=== PATIENT | male | born 2000 | race Caucasian/White ===

== ENCOUNTER 2023-09-29 13:10 | Inpatient (IN) | payer OTHER ==
[~2023-09-29 13:10] MED LIST: Dexamethasone 20 MG/5 ML VIAL ONE; Iopamidol-370 76% 500 ML MDV (1 ML CHARGE) ONE; Lidocaine 1% PF 5 ML VIAL ONE; Ondansetron PF 4 MG/2 ML Vial ONE; PROPOFOL 200 MG/20 ML VIAL ONE; Rocuronium Bromide 10 MG/ML (10ML VIAL) ONE; Succinylcholine 200 MG/10 ml SYRINGE FS ONE
[2023-09-29] MEDS ORDERED: CEFAZOLIN 2 GM VIAL ONE (13:15)
[2023-09-29] MEDS ORDERED: Boostrix 0.5 ML (Tdap) VIAL (>/=7 yrs of age) ONE (13:15)
[2023-09-29] MEDS ORDERED: Sodium Chloride 0.9% 100 ML ONE (13:15)
[2023-09-29] MEDS ORDERED: fentaNYL 50 mcg/mL 1 mL Vial ONE ×4 (13:21→17:50)
[2023-09-29 13:31] LABS: #Basophils 0.1 thou/uL (0.0-0.2); #Eosinphils 0.2 thou/uL (0.0-0.7); #Monocytes 0.6 thou/uL (0.11-0.59); %Basophils 0.6 % (0.0-1.0); %Eosinophils 1.9 % (0.0-10.0); %Lymphocytes 42.5 % (21.0-51.0); %Monocytes 6.7 % (0.0-10.0); %Neutrophils 47.9 % (42.0-75.0); Hematocrit 43.8 % (42.0-52.0); Hemoglobin 15.2 g/dL (14.0-18.0); Mean Corpuscular HGB CONC 34.7 g/dL (32.0-36.0); Mean Corpuscular Hemoglobin 29.4 pg (27.0-31.0); Mean Corpuscular Volume 84.7 fl (78.0-98.0); Mean Platelet Volume 9.7 fL (7.4-10.4); Platelet Count 285 10x3/uL (130-400); RBC Distribution Width 12.9 % (11.5-14.5); Red Blood Cell (RBC) Count 5.17 mill/uL (4.70-6.10); White Blood Cell (WBC) Count 8.4 10x3/uL (4.8-10.8)
[2023-09-29] MEDS ORDERED: Ondansetron PF 4 MG/2 ML Vial ONE ×2 (13:43→16:22)
[2023-09-29] MEDS ORDERED: Morphine 10 MG/ML VIAL ONE (13:43)
[2023-09-29 13:49] LABS: ALT (SGPT) 28 U/L (8-55); AST (SGOT) 22 U/L (5-34); Albumin 4.4 g/dL (3.5-5.0); Alkaline Phosphatase 58 U/L (40-110); Anion Gap 14 mmol/L (10-20); BUN (Urea Nitrogen) 10 mg/dL (8.9-20.6); Bilirubin, Total 0.6 mg/dL (0.2-1.2); Calc. Creatinine Clearance 0 mL/min (70-130); Calcium 9.1 mg/dL (7.8-10.44); Carbon Dioxide 24 mmol/L (22-29); Chloride 104 mmol/L (98-107); Estimated GFR 73; Globulin 2.9 g/dL (2.4-3.5); Glucose 136 mg/dL (70-105); Potassium 3.1 mmol/L (3.5-5.1); Protein, Total 7.3 g/dL (6.0-8.3); Sodium 139 mmol/L (136-145)
[2023-09-29 13:51] LABS: Prothrombin Time 13.1 sec (12.0-14.7)
[2023-09-29 13:55] LABS: PTT 22.4 sec (22.9-36.1)
[2023-09-29] MEDS ORDERED: Midazolam HCl 2 mg/2 ml Vial ONE (14:39)
[2023-09-29] MEDS ORDERED: fentaNYL PF 100 MCG/2 ML SYRINGE ONE (14:39)
[2023-09-29] MEDS ORDERED: Glucagon 1 MG/ML KIT IM PRN (14:47)
[2023-09-29] MEDS ORDERED: traMADol HCl 50 MG TAB PO PRN (14:47)
[2023-09-29] MEDS ORDERED: Acetaminophen 325 MG TAB PO PRN (14:47)
[2023-09-29] MEDS ORDERED: Morphine 2 MG/ML VIAL SLOW IVP PRN (14:47)
[2023-09-29] MEDS ORDERED: Dextrose 5% in Water 1,000 ML IV PRN (14:47)
[2023-09-29] MEDS ORDERED: TETANUS, DIPHTHERIA TOX,ADULT (TDVAX) 0.5 ML VIAL IM ONE (14:47)
[2023-09-29] MEDS ORDERED: Dextrose 50% Abboject 50 ML SYRINGE SLOW IVP PRN (14:47)
[2023-09-29] MEDS ORDERED: Albumin 5% 0 ML ONE (15:16)
[2023-09-29] MEDS ORDERED: Lidocaine 1% PF 5 ML VIAL ONE (15:23)
[2023-09-29] MEDS ORDERED: Rocuronium Bromide 10 MG/ML (10ML VIAL) ONE (15:23)
[2023-09-29] MEDS ORDERED: Succinylcholine 200 MG/10 ml SYRINGE FS ONE (15:23)
[2023-09-29] MEDS ORDERED: CEFAZOLIN 1 GM VIAL ONE (15:42)
[2023-09-29] MEDS ORDERED: Ketamine In 0.9 % NaCl 50 MG/5 ML SYRINGE ONE (15:50)
[2023-09-29] MEDS ORDERED: Dexamethasone 20 MG/5 ML VIAL ONE (16:10)
[2023-09-29] MEDS ORDERED: Ondansetron PF 4 MG/2 ML Vial IVP PRN (16:27)
[2023-09-29] MEDS ORDERED: HYDROmorphone/PF 10 MG in Sodium Chloride 0.9% 99 ML IV PRN (16:27)
[2023-09-29] MEDS ORDERED: Ondansetron HCl/PF 4 MG/2 ML Vial IVP PRN (16:27)
[2023-09-29] MEDS ORDERED: diphenhydrAMINE 25 MG CAP PO PRN (16:27)
[2023-09-29] MEDS ORDERED: diphenhydrAMINE 50 MG/ML VIAL IM PRN (16:27)
[2023-09-29] MEDS ORDERED: Morphine Sulfate 2 MG/ML SYRINGE SLOW IVP PRN (16:27)
[2023-09-29] MEDS ORDERED: Meperidine HCl/PF 25 MG/ML VIAL SLOW IVP PRN (16:27)
[2023-09-29] MEDS ORDERED: Naloxone HCl 0.4 mg/ml Vial IV PRN (16:27)
[2023-09-29] MEDS ORDERED: Promethazine HCl 25 MG/ML VIAL IM PRN ×2 (16:27)
[2023-09-29] MEDS ORDERED: diphenhydrAMINE 50 MG/ML VIAL IVP PRN (16:27)
[2023-09-29] MEDS ORDERED: HYDROmorphone 2 MG/ML VIAL SLOW IVP PRN (16:27)
[2023-09-29] MEDS ORDERED: Communication Order-Pharmacy FS SCH (16:30)
[2023-09-29] MEDS ORDERED: Protamine Sulfate 50 MG/5 ML VIAL ONE (16:49)
[2023-09-29] MEDS ORDERED: Heparin 5,000 UNITS/ML VIAL ONE (16:50)
[2023-09-29] MEDS ORDERED: Heparin 10,000 UNITS/ 10 ML VIAL ONE ×2 (17:15→17:16)
[2023-09-29] MEDS ORDERED: Dexmedetomidine 200 MCG/2 ML VIAL ONE (18:12)
[2023-09-29] MEDS ORDERED: SUGAMMADEX SODIUM 200 MG/2 ML VIAL ONE (18:16)
[2023-09-29] MEDS ORDERED: HYDROmorphone 2 MG/ML VIAL ONE (18:30)
[2023-09-29 20:17] VITALS: BMI 30.8
[2023-09-29] MEDS: Sodium Chloride 0.9% 1,000 ML IV SCH (20:30)
[2023-09-29] MEDS: CEFAZOLIN 2 GM in Sodium Chloride 0.9% 100 ML IVPB SCH (21:30)
[2023-09-30 04:39] LABS: #Neutrophils 20.4 thou/uL (1.40-6.50); %Basophils 0.2 % (0.0-1.0); %Lymphocytes 4.2 % (21.0-51.0); %Neutrophils 82.7 % (42.0-75.0); Hematocrit 37.3 % (42.0-52.0); Hemoglobin 12.8 g/dL (14.0-18.0); Mean Corpuscular HGB CONC 34.3 g/dL (32.0-36.0); Mean Corpuscular Hemoglobin 29.5 pg (27.0-31.0); Mean Corpuscular Volume 85.9 fl (78.0-98.0); Platelet Count 275 10x3/uL (130-400); RBC Distribution Width 12.9 % (11.5-14.5); Red Blood Cell (RBC) Count 4.34 mill/uL (4.70-6.10); White Blood Cell (WBC) Count 24.7 10x3/uL (4.8-10.8)
[2023-09-30] MEDS: CEFAZOLIN 2 GM in Sodium Chloride 0.9% 100 ML IVPB SCH (05:28)
[2023-09-30] MEDS: Sodium Chloride 0.9% 1,000 ML IV SCH ×3 (05:36→21:46)
[2023-09-30] MEDS: Ondansetron PF 4 MG/2 ML Vial IVP PRN (06:12)
[2023-09-30 06:24] LABS: Albumin 3.9 g/dL (3.5-5.0)
[2023-09-30 06:26] LABS: Chloride 103 mmol/L (98-107); Sodium 133 mmol/L (136-145)
[2023-09-30 06:27] LABS: Calcium 7.6 mg/dL (7.8-10.44); Globulin 2.5 g/dL (2.4-3.5); Glucose 163 mg/dL (70-105); Potassium 5.1 mmol/L (3.5-5.1); Protein, Total 6.4 g/dL (6.0-8.3)
[2023-09-30 06:28] LABS: Anion Gap 14 mmol/L (10-20); Carbon Dioxide 21 mmol/L (22-29)
[2023-09-30 06:29] LABS: Bilirubin, Total 0.5 mg/dL (0.2-1.2)
[2023-09-30 06:30] LABS: Alkaline Phosphatase 42 U/L (40-110); Calc. Creatinine Clearance 121 mL/min (70-130); Estimated GFR 69
[2023-09-30] MEDS ORDERED: Electrolyte Replacement Protocol 1 EACH FS SCH (06:30)
[2023-09-30 06:31] LABS: BUN (Urea Nitrogen) 13 mg/dL (8.9-20.6)
[2023-09-30 06:32] LABS: AST (SGOT) 33 U/L (5-34)
[2023-09-30 06:33] LABS: ALT (SGPT) 25 U/L (8-55)
[2023-09-30] MEDS ORDERED: Electrolyte Replacement Protocol FS PRN (06:45)
[2023-09-30] MEDS ORDERED: FLU VACC QS2023-24(6MOS UP)/PF 60 MCG/0.5 ML SYRINGE IM ONE (09:00)
[2023-09-30] MEDS: Aspirin 81 mg Enteric Coated Tablet PO SCH (09:05)
[2023-09-30] MEDS ORDERED: HYDROcodone/Acetaminophen 10/325 mg Tablet PO PRN (11:39)
[2023-09-30] MEDS ORDERED: traMADol HCl 50 MG TAB PO PRN (11:40)
[2023-09-30] MEDS ORDERED: fentaNYL 50 mcg/mL 1 mL Vial SLOW IVP PRN (11:42)
[2023-09-30] MEDS: HYDROcodone/Acetaminophen 10/325 mg Tablet PO PRN ×3 (13:35→23:44)
[2023-09-30] MEDS: traMADol HCl 50 MG TAB PO PRN (20:05)
[2023-10-01] MEDS: HYDROcodone/Acetaminophen 10/325 mg Tablet PO PRN ×2 (03:31→07:51)
[2023-10-01] MEDS: traMADol HCl 50 MG TAB PO PRN ×3 (06:22→23:51)
[2023-10-01] MEDS: Sodium Chloride 0.9% 1,000 ML IV SCH (07:10)
[2023-10-01] MEDS: Aspirin 81 mg Enteric Coated Tablet PO SCH (07:51)
[2023-10-01 08:13] LABS: #Monocytes 2.1 thou/uL (0.11-0.59); #Neutrophils 9.5 thou/uL (1.40-6.50); %Basophils 0.2 % (0.0-1.0); %Eosinophils 0.2 % (0.0-10.0); %Lymphocytes 14.3 % (21.0-51.0); %Monocytes 15.1 % (0.0-10.0); %Neutrophils 69.7 % (42.0-75.0); Mean Corpuscular HGB CONC 34.2 g/dL (32.0-36.0); Mean Corpuscular Hemoglobin 29.3 pg (27.0-31.0); Mean Corpuscular Volume 85.5 fl (78.0-98.0); Platelet Count 166 10x3/uL (130-400); RBC Distribution Width 12.9 % (11.5-14.5); Red Blood Cell (RBC) Count 3.04 mill/uL (4.70-6.10); White Blood Cell (WBC) Count 13.7 10x3/uL (4.8-10.8)
[2023-10-01 08:16] LABS: Hemoglobin 8.9 g/dL (14.0-18.0)
[2023-10-01] MEDS ORDERED: Morphine 2 MG/ML VIAL SLOW IVP PRN (08:18)
[2023-10-01] MEDS: Ibuprofen 600 MG TAB PO PRN (09:33)
[2023-10-01] MEDS ORDERED: traMADol HCl 50 MG TAB PO SCH (10:45)
[2023-10-01] MEDS ORDERED: Gabapentin 300 MG CAP PO SCH ×2 (10:45→11:00)
[2023-10-01] MEDS ORDERED: Acetaminophen 325 MG TAB PO SCH (12:00)
[2023-10-01] MEDS ORDERED: Acetaminophen 500 MG TAB PO SCH (12:00)
[2023-10-01] MEDS ORDERED: HYDROcodone/Acetaminophen 5/325 mg Tablet PO PRN (13:03)
[2023-10-01] MEDS: HYDROcodone/Acetaminophen 5/325 mg Tablet PO PRN ×2 (14:16→20:01)
[2023-10-01] MEDS: Gabapentin 300 MG CAP PO SCH ×2 (14:17→20:01)
[2023-10-01] MEDS: Acetaminophen 325 MG TAB PO SCH ×2 (18:12→23:51)
[2023-10-02] MEDS: Ibuprofen 600 MG TAB PO PRN ×3 (03:51→23:12)
[2023-10-02] MEDS: HYDROcodone/Acetaminophen 5/325 mg Tablet PO PRN ×3 (03:51→20:12)
[2023-10-02] MEDS ORDERED: HYDROcodone/Acetaminophen 5/325 mg Tablet PO SCH (04:30)
[2023-10-02] MEDS ORDERED: Morphine 4 MG/ML VIAL SLOW IVP PRN (05:45)
[2023-10-02] MEDS: Acetaminophen 325 MG TAB PO SCH ×4 (05:52→23:12)
[2023-10-02 06:08] LABS: #Monocytes 1.3 thou/uL (0.11-0.59); %Basophils 0.2 % (0.0-1.0); %Eosinophils 0.3 % (0.0-10.0); %Monocytes 10.8 % (0.0-10.0); %Neutrophils 76.2 % (42.0-75.0); Hematocrit 24.2 % (42.0-52.0); Hemoglobin 8.4 g/dL (14.0-18.0); Mean Corpuscular HGB CONC 34.7 g/dL (32.0-36.0); Mean Corpuscular Hemoglobin 29.9 pg (27.0-31.0); Mean Corpuscular Volume 86.1 fl (78.0-98.0); Platelet Count 162 10x3/uL (130-400); RBC Distribution Width 12.7 % (11.5-14.5); Red Blood Cell (RBC) Count 2.81 mill/uL (4.70-6.10); White Blood Cell (WBC) Count 11.8 10x3/uL (4.8-10.8)
[2023-10-02] MEDS: Aspirin 81 mg Enteric Coated Tablet PO SCH (08:18)
[2023-10-02] MEDS: Gabapentin 300 MG CAP PO SCH ×3 (08:19→20:13)
[2023-10-02] MEDS: traMADol HCl 50 MG TAB PO PRN ×3 (08:26→23:13)
[2023-10-02] MEDS ORDERED: Sodium Chloride 0.9% 0 ML ONE (09:51)
[2023-10-02] MEDS ORDERED: CEFAZOLIN 2 GM VIAL ONE (09:51)
[2023-10-02] MEDS ORDERED: Midazolam HCl 2 mg/2 ml Vial ONE (09:59)
[2023-10-02] MEDS ORDERED: fentaNYL PF 100 MCG/2 ML SYRINGE ONE (10:00)
[2023-10-02] MEDS ORDERED: Succinylcholine 200 MG/10 ml SYRINGE FS ONE (10:05)
[2023-10-02] MEDS ORDERED: Ondansetron PF 4 MG/2 ML Vial ONE (10:05)
[2023-10-02] MEDS ORDERED: PROPOFOL 200 MG/20 ML VIAL ONE (10:05)
[2023-10-02] MEDS ORDERED: Lidocaine 1% PF 5 ML VIAL ONE (10:05)
[2023-10-02] MEDS ORDERED: Meperidine HCl/PF 25 MG/ML VIAL ONE (11:31)
[2023-10-02] MEDS ORDERED: Ondansetron HCl/PF 4 MG/2 ML Vial IVP PRN (11:32)
[2023-10-02] MEDS ORDERED: Meperidine HCl/PF 25 MG/ML VIAL SLOW IVP PRN (11:32)
[2023-10-02] MEDS ORDERED: Promethazine HCl 25 MG/ML VIAL IM PRN (11:32)
[2023-10-02] MEDS ORDERED: fentaNYL 50 mcg/mL 1 mL Vial ONE (11:41)
[2023-10-02] MEDS ORDERED: Iopamidol 370 76% 100 ML VIAL ONE (11:53)
[2023-10-02] MEDS: Ondansetron PF 4 MG/2 ML Vial IVP PRN (12:26)
[2023-10-02 13:22] LABS: Hematocrit 24.9 % (42.0-52.0); Hemoglobin 8.5 g/dL (14.0-18.0)
[2023-10-02] MEDS: CEFAZOLIN 2 GM in Sodium Chloride 0.9% 100 ML IVPB SCH (17:24)
[2023-10-03] MEDS: CEFAZOLIN 2 GM in Sodium Chloride 0.9% 100 ML IVPB SCH ×3 (02:01→17:37)
[2023-10-03] MEDS: HYDROcodone/Acetaminophen 5/325 mg Tablet PO PRN ×4 (02:02→20:25)
[2023-10-03] MEDS: Acetaminophen 325 MG TAB PO SCH ×4 (05:07→23:41)
[2023-10-03] MEDS: traMADol HCl 50 MG TAB PO PRN ×4 (05:07→23:41)
[2023-10-03 06:16] LABS: #Eosinphils 0.2 thou/uL (0.0-0.7); #Neutrophils 7.6 thou/uL (1.40-6.50); %Basophils 0.3 % (0.0-1.0); %Eosinophils 2.2 % (0.0-10.0); %Monocytes 9.1 % (0.0-10.0); %Neutrophils 71.6 % (42.0-75.0); Hematocrit 25.5 % (42.0-52.0); Hemoglobin 8.7 g/dL (14.0-18.0); Mean Corpuscular HGB CONC 34.1 g/dL (32.0-36.0); Mean Corpuscular Hemoglobin 29.8 pg (27.0-31.0); Mean Corpuscular Volume 87.3 fl (78.0-98.0); Mean Platelet Volume 9.8 fL (7.4-10.4); Platelet Count 191 10x3/uL (130-400); RBC Distribution Width 13.2 % (11.5-14.5); Red Blood Cell (RBC) Count 2.92 mill/uL (4.70-6.10); White Blood Cell (WBC) Count 10.5 10x3/uL (4.8-10.8)
[2023-10-03 06:42] LABS: Anion Gap 11 mmol/L (10-20); BUN (Urea Nitrogen) 7 mg/dL (8.9-20.6); Calc. Creatinine Clearance 181 mL/min (70-130); Calcium 8.3 mg/dL (7.8-10.44); Carbon Dioxide 30 mmol/L (22-29); Chloride 101 mmol/L (98-107); Estimated GFR 111; Glucose 114 mg/dL (70-105); Potassium 4.1 mmol/L (3.5-5.1); Sodium 138 mmol/L (136-145)
[2023-10-03] MEDS: Aspirin 81 mg Enteric Coated Tablet PO SCH (08:16)
[2023-10-03] MEDS: Gabapentin 300 MG CAP PO SCH ×3 (08:16→20:23)
[2023-10-03] MEDS: Ondansetron PF 4 MG/2 ML Vial IVP PRN (09:02)
[2023-10-03] MEDS: Ibuprofen 600 MG TAB PO PRN ×3 (11:16→20:24)
[2023-10-04] MEDS: Acetaminophen 325 MG TAB PO SCH ×2 (04:48→12:36)
[2023-10-04] MEDS: Ibuprofen 600 MG TAB PO PRN (04:49)
[2023-10-04] MEDS: traMADol HCl 50 MG TAB PO PRN (04:49)
[2023-10-04 07:52] VITALS: BP 138/75; TEMP 98.2
[2023-10-04] MEDS: Gabapentin 300 MG CAP PO SCH (09:05)
[2023-10-04] MEDS: Aspirin 81 mg Enteric Coated Tablet PO SCH (09:05)
[2023-10-04] MEDS: HYDROcodone/Acetaminophen 5/325 mg Tablet PO PRN (09:09)
== END 2023-10-04 13:08 | disposition home or self-care (01) | DRG 480 ==
LOC: ERS 13:10 → SDC 14:47 → CCU 15:02 → SJJU 09-30 18:56
PROVIDERS: ADMIT Family Medicine; ATTEND Family Medicine
PROC: 0QS806Z Reposition Right Femoral Shaft with Intramedullary Internal Fixation Device, Open Approach (ICD-10-PCS; principal; 2023-09-29)
PROC: 06BP0ZZ Excision of Right Saphenous Vein, Open Approach (ICD-10-PCS; 2023-09-29)
PROC: 0SCC0ZZ Extirpation of Matter from Right Knee Joint, Open Approach (ICD-10-PCS; 2023-09-29)
PROC: 041K09L Bypass Right Femoral Artery to Popliteal Artery with Autologous Venous Tissue, Open Approach (ICD-10-PCS; 2023-09-29)
PROC: 06BP0ZZ Excision of Right Saphenous Vein, Open Approach (ICD-10-PCS; 2023-09-29)
PROC: 04QM0ZZ Repair Right Popliteal Artery, Open Approach (ICD-10-PCS; 2023-10-02)
PROC: 30233N1 Transfusion of Nonautologous Red Blood Cells into Peripheral Vein, Percutaneous Approach (ICD-10-PCS; 2023-10-02)
DX: S72.401A Unspecified fracture of lower end of right femur, initial encounter for closed fracture (principal); S85.001A Unspecified injury of popliteal artery, right leg, initial encounter; W34.00XA Accidental discharge from unspecified firearms or gun, initial encounter; Z98.890 Other specified postprocedural states; Z79.899 Other long term (current) drug therapy; S80.01XA Contusion of right knee, initial encounter; I99.8 Other disorder of circulatory system
CPT/HCPCS: 36415; 36430; 71045; 80048; 80053; 83605; 85025; 85610; 85730; 86850; 86900; 86901; 90471; 90715; 93005; 96365; 96375; 96376; C1713; G0390; J0690; J1100; J1170; J1644; J1650; J2175; J2250; J2270; J2405; J2704; J2720; J3010; J3490; J7050; P9016; P9045; Q9967